=== PATIENT | female | born 1990 | race Hispanic/Latino ===

== ENCOUNTER → 2021-07-16 | Outpatient (CLI) | payer OTHER, SELFPAY ==
[~2021-07-16] VITALS: Ht 12.7 cm; Wt 117.8 kg
== END | disposition home or self-care (01) ==
LOC: DTH 10:43
PROVIDERS: ATTEND Surgery
DX: G47.33 Obstructive sleep apnea (adult) (pediatric) (principal); E66.01 Morbid (severe) obesity due to excess calories; M19.91 Primary osteoarthritis, unspecified site; K21.9 Gastro-esophageal reflux disease without esophagitis
CPT/HCPCS: 97802

== ENCOUNTER → 2021-09-10 | Outpatient (CLI) | payer OTHER | END | disposition home or self-care (01) | LOC: EDUNIT# 09-04 10:00 → DTH 10:21 | PROVIDERS: ATTEND Surgery | DX: G47.33 Obstructive sleep apnea (adult) (pediatric) (principal); E66.01 Morbid (severe) obesity due to excess calories; K21.9 Gastro-esophageal reflux disease without esophagitis; M19.91 Primary osteoarthritis, unspecified site | CPT/HCPCS: 97803 ==

== ENCOUNTER → 2021-11-06 | Outpatient (CLI) | payer OTHER | END | disposition home or self-care (01) | LOC: EDUNIT# 10-30 10:00 → DTH 09:49 | PROVIDERS: ATTEND Surgery | DX: E66.01 Morbid (severe) obesity due to excess calories (principal); G47.33 Obstructive sleep apnea (adult) (pediatric); M19.91 Primary osteoarthritis, unspecified site; K21.9 Gastro-esophageal reflux disease without esophagitis | CPT/HCPCS: 97803 ==